=== PATIENT | female | born 1990 | race Two or more races ===

== ENCOUNTER 2018-05-16 11:47 | Outpatient (CLI) | payer OTHER ==
[~2018-05-16 11:47] MED LIST: SYNTHROID75 MCG PO
== END 2018-05-16 14:08 | disposition home or self-care (01) ==
LOC: NST 11:47
DX: O30.003 Twin pregnancy, unspecified number of placenta and unspecified number of amniotic sacs, third trimester (principal); Z34.83 Encounter for supervision of other normal pregnancy, third trimester

== ENCOUNTER → 2018-05-23 | Outpatient (CLI) | payer OTHER | END | disposition home or self-care (01) | LOC: NST 12:34 | DX: O30.003 Twin pregnancy, unspecified number of placenta and unspecified number of amniotic sacs, third trimester (principal); Z34.03 Encounter for supervision of normal first pregnancy, third trimester ==

== ENCOUNTER 2018-06-14 12:34 | Outpatient (CLI) | payer OTHER | END 2018-06-14 13:50 | disposition home or self-care (01) | LOC: NST 12:34 | DX: O30.003 Twin pregnancy, unspecified number of placenta and unspecified number of amniotic sacs, third trimester (principal); Z34.03 Encounter for supervision of normal first pregnancy, third trimester ==

== ENCOUNTER 2018-06-27 12:48 | Outpatient (CLI) | payer OTHER | END 2018-06-27 13:37 | disposition home or self-care (01) | LOC: NST 12:48 | DX: O30.003 Twin pregnancy, unspecified number of placenta and unspecified number of amniotic sacs, third trimester (principal); Z34.03 Encounter for supervision of normal first pregnancy, third trimester ==

== ENCOUNTER 2018-06-29 13:52 | Outpatient (CLI) | payer OTHER | END 2018-06-29 15:51 | disposition home or self-care (01) | LOC: NST 13:52 | DX: O30.003 Twin pregnancy, unspecified number of placenta and unspecified number of amniotic sacs, third trimester (principal); Z34.03 Encounter for supervision of normal first pregnancy, third trimester ==

== ENCOUNTER 2018-07-11 12:41 | Outpatient (CLI) | payer OTHER | END 2018-07-11 13:42 | disposition home or self-care (01) | LOC: NST 12:41 | DX: O30.003 Twin pregnancy, unspecified number of placenta and unspecified number of amniotic sacs, third trimester (principal); Z34.03 Encounter for supervision of normal first pregnancy, third trimester ==

== ENCOUNTER → 2018-07-18 | Outpatient (CLI) | payer OTHER | END | disposition home or self-care (01) | LOC: NST 15:04 | DX: O30.003 Twin pregnancy, unspecified number of placenta and unspecified number of amniotic sacs, third trimester (principal); Z34.03 Encounter for supervision of normal first pregnancy, third trimester ==

== ENCOUNTER 2018-07-25 12:25 | Outpatient (CLI) | payer OTHER | END 2018-07-25 13:38 | disposition home or self-care (01) | LOC: NST 12:25 | DX: Z34.83 Encounter for supervision of other normal pregnancy, third trimester (principal) ==

== ENCOUNTER 2018-07-25 16:25 | Inpatient (IN) | payer OTHER ==
[~2018-07-25] VITALS: Ht 175.3 cm; Wt 2.3 kg
[2018-08-01] MEDS ORDERED: PRENATAL 19 TA1 EACH (09:27)
[2018-08-01] MEDS ORDERED: LABETALOL HCL100 MG PO (09:28)
[2018-08-01] MEDS ORDERED: PRENATAL 19 TA1 EACH PO (09:28)
== END 2018-08-04 14:37 | DRG 806 ==
LOC: LDR 08-01 07:24 → OB/GYN 08-01 07:24 → LDR 08-01 09:03 → O/R 08-01 13:28 → OB/GYN 08-01 13:57 → LDR 08-23 10:45
PROVIDERS: Obstetrics & Gynecology Maternal & Fetal Medicine
PROC: 4A1HXCZ Monitoring of Products of Conception, Cardiac Rate, External Approach (ICD-10-PCS; 2018-08-01)
PROC: 0UQGXZZ Repair Vagina, External Approach (ICD-10-PCS; 2018-08-01)
PROC: 30233N1 Transfusion of Nonautologous Red Blood Cells into Peripheral Vein, Percutaneous Approach (ICD-10-PCS; 2018-08-01)
PROC: 10E0XZZ Delivery of Products of Conception, External Approach (ICD-10-PCS; principal; 2018-08-01 12:00)
DX: O71.4 Obstetric high vaginal laceration alone (principal); D62 Acute posthemorrhagic anemia; Z37.2 Twins, both liveborn; O30.092 Twin pregnancy, unable to determine number of placenta and number of amniotic sacs, second trimester; Z22.330 Carrier of Group B streptococcus; Z3A.36 36 weeks gestation of pregnancy; O90.81 Anemia of the puerperium

== ENCOUNTER 2019-07-15 11:47 | Outpatient (CLI) | payer OTHER ==
[~2019-07-15 11:47] MED LIST changes: +LABETALOL HCL100 MG PO; +PRENATAL 19 TA1 EACH; +PRENATAL 19 TA1 EACH PO
== END 2019-07-15 12:19 | disposition home or self-care (01) ==
LOC: LAB 11:47
DX: J11.1 Influenza due to unidentified influenza virus with other respiratory manifestations (principal)